=== PATIENT | female | born 1940 | race Caucasian/White ===

== ENCOUNTER 2020-08-20 11:57 | Inpatient (IN) | payer MEDICARE ==
[2020-08-21] MEDS ORDERED: Senokot S 8.6-50 MG TAB PO PRN (15:07)
[2020-08-21] MEDS: Ipratropium Bromide 2.5 ml Neb NEB SCH (17:55)
[2020-08-21] MEDS: Mometasone/Formoterol 60 PUFF AER INH SCH (20:15)
[2020-08-21] MEDS: Ferrous Sulfate 325 MG TAB PO SCH (20:24)
[2020-08-21] MEDS: Atorvastatin Calcium 40 MG TAB PO SCH (20:24)
[2020-08-22] MEDS: Ipratropium Bromide 2.5 ml Neb NEB SCH ×5 (00:04→23:23)
[2020-08-22] MEDS: traMADol HCl 50 MG TAB PO PRN ×2 (00:05→09:14)
[2020-08-22 08:08] LABS: #Basophils 0.1 thou/uL (0.0-0.2); #Lymphocytes 0.7 thou/uL (1.20-3.40); #Monocytes 0.9 thou/uL (0.11-0.59); #Neutrophils 6.5 thou/uL (1.40-6.50); %Basophils 0.7 % (0.0-1.0); %Lymphocytes 8.6 % (21.0-51.0); %Monocytes 10.9 % (0.0-10.0); %Neutrophils 79.8 % (42.0-75.0); Hemoglobin 8.8 g/dL (12.0-16.0); Mean Corpuscular HGB CONC 30.7 g/dL (32.0-36.0); Mean Corpuscular Hemoglobin 29.8 pg (27.0-31.0); Mean Corpuscular Volume 97.2 fL (78.0-98.0); Platelet Count 363 thou/uL (130-400); RBC Distribution Width 17.6 % (11.5-14.5); Red Blood Cell (RBC) Count 2.96 mill/uL (4.20-5.40); White Blood Cell (WBC) Count 8.1 thou/uL (4.8-10.8)
[2020-08-22 08:16] LABS: ALT (SGPT) 29 U/L (8-55); AST (SGOT) 24 U/L (5-34); Albumin 3.3 g/dL (3.4-4.8); Alkaline Phosphatase 52 U/L (40-110); Anion Gap 14 mmol/L (10-20); BUN (Urea Nitrogen) 8 mg/dL (9.8-20.1); Bilirubin, Total 1.9 mg/dL (0.2-1.2); Calc. Creatinine Clearance 73 mL/min (70-130); Calcium 8.5 mg/dL (7.8-10.44); Carbon Dioxide 31 mmol/L (23-31); Chloride 92 mmol/L (98-107); Globulin 2.1 g/dL (2.4-3.5); Glucose 103 mg/dL (83-110); Potassium 3.8 mmol/L (3.5-5.1); Protein, Total 5.4 g/dL (5.8-8.1); Sodium 133 mmol/L (136-145)
[2020-08-22] MEDS: Clopidogrel Bisulfate 75 MG TAB PO SCH (08:24)
[2020-08-22] MEDS: Ferrous Sulfate 325 MG TAB PO SCH ×2 (08:24→20:26)
[2020-08-22] MEDS: Spironolactone 100 MG TAB PO SCH (08:24)
[2020-08-22] MEDS: Mometasone/Formoterol 60 PUFF AER INH SCH ×2 (08:25→20:27)
[2020-08-22] MEDS: Torsemide 20 MG TAB PO SCH (08:27)
[2020-08-22] MEDS: Atorvastatin Calcium 40 MG TAB PO SCH (20:26)
[2020-08-23] MEDS: traMADol HCl 50 MG TAB PO PRN (05:05)
[2020-08-23] MEDS: Ipratropium Bromide 2.5 ml Neb NEB SCH ×4 (05:07→23:03)
[2020-08-23] MEDS: Clopidogrel Bisulfate 75 MG TAB PO SCH (09:15)
[2020-08-23] MEDS: Mometasone/Formoterol 60 PUFF AER INH SCH ×2 (09:15→20:18)
[2020-08-23] MEDS: Polyethylene Glycol 3350 17 GM Packet PO SCH (09:15)
[2020-08-23] MEDS: Torsemide 20 MG TAB PO SCH (09:15)
[2020-08-23] MEDS: Ferrous Sulfate 325 MG TAB PO SCH ×2 (09:15→20:19)
[2020-08-23] MEDS: Spironolactone 100 MG TAB PO SCH (09:16)
[2020-08-23] MEDS: Atorvastatin Calcium 40 MG TAB PO SCH (20:19)
[2020-08-23] MEDS ORDERED: Sodium Chloride 0.9% 1,000 ML IV SCH (21:15)
[2020-08-23] MEDS ORDERED: Sodium Chloride 0.9% 1,000 ML IV PRN (22:22)
[2020-08-24 05:29] LABS: #Lymphocytes 0.9 thou/uL (1.20-3.40); #Monocytes 0.8 thou/uL (0.11-0.59); #Neutrophils 6.4 thou/uL (1.40-6.50); %Basophils 0.5 % (0.0-1.0); %Eosinophils 0.3 % (0.0-10.0); %Lymphocytes 10.9 % (21.0-51.0); %Monocytes 9.7 % (0.0-10.0); %Neutrophils 78.6 % (42.0-75.0); Hemoglobin 10.1 g/dL (12.0-16.0); Mean Corpuscular HGB CONC 30.6 g/dL (32.0-36.0); Mean Corpuscular Hemoglobin 30.4 pg (27.0-31.0); Mean Corpuscular Volume 99.4 fL (78.0-98.0); Mean Platelet Volume 6.7 fL (7.4-10.4); Platelet Count 381 thou/uL (130-400); RBC Distribution Width 18.3 % (11.5-14.5); Red Blood Cell (RBC) Count 3.33 mill/uL (4.20-5.40); White Blood Cell (WBC) Count 8.1 thou/uL (4.8-10.8)
[2020-08-24 05:45] LABS: Anion Gap 15 mmol/L (10-20); BUN (Urea Nitrogen) 9 mg/dL (9.8-20.1); Calc. Creatinine Clearance 69 mL/min (70-130); Calcium 8.5 mg/dL (7.8-10.44); Carbon Dioxide 28 mmol/L (23-31); Chloride 94 mmol/L (98-107); Glucose 100 mg/dL (83-110); Potassium 3.6 mmol/L (3.5-5.1); Sodium 133 mmol/L (136-145)
[2020-08-24] MEDS: Ipratropium Bromide 2.5 ml Neb NEB SCH ×4 (05:49→23:49)
[2020-08-24] MEDS: Mometasone/Formoterol 60 PUFF AER INH SCH ×2 (08:48→20:43)
[2020-08-24] MEDS: Torsemide 20 MG TAB PO SCH (08:49)
[2020-08-24] MEDS: Ferrous Sulfate 325 MG TAB PO SCH ×2 (08:49→20:44)
[2020-08-24] MEDS: Clopidogrel Bisulfate 75 MG TAB PO SCH (08:49)
[2020-08-24] MEDS: Polyethylene Glycol 3350 17 GM Packet PO SCH (08:49)
[2020-08-24] MEDS: Spironolactone 100 MG TAB PO SCH (08:50)
[2020-08-24] MEDS ORDERED: Spironolactone 25 MG TAB PO SCH (10:00)
[2020-08-24] MEDS ORDERED: Sodium Chloride 0.9% 1,000 ML IV SCH ×2 (11:15→14:15)
[2020-08-24] MEDS ORDERED: Sodium Chloride 0.9% 500 ML IV SCH (14:15)
[2020-08-24] MEDS: Atorvastatin Calcium 40 MG TAB PO SCH (20:44)
[2020-08-25] MEDS: Ipratropium Bromide 2.5 ml Neb NEB SCH ×3 (05:20→18:16)
[2020-08-25] MEDS: Polyethylene Glycol 3350 17 GM Packet PO SCH (08:55)
[2020-08-25] MEDS: Mometasone/Formoterol 60 PUFF AER INH SCH ×2 (08:55→21:09)
[2020-08-25] MEDS: Ferrous Sulfate 325 MG TAB PO SCH ×2 (08:56→21:09)
[2020-08-25] MEDS: Clopidogrel Bisulfate 75 MG TAB PO SCH (08:56)
[2020-08-25 18:42] VITALS: BMI 26.3
[2020-08-25] MEDS: Atorvastatin Calcium 40 MG TAB PO SCH (21:09)
[2020-08-25] MEDS: traMADol HCl 50 MG TAB PO PRN (22:37)
[2020-08-26] MEDS: Ipratropium Bromide 2.5 ml Neb NEB SCH ×4 (05:59→18:20)
[2020-08-26] MEDS: Mometasone/Formoterol 60 PUFF AER INH SCH ×2 (09:29→20:08)
[2020-08-26] MEDS: Ferrous Sulfate 325 MG TAB PO SCH ×2 (09:29→20:09)
[2020-08-26] MEDS: Clopidogrel Bisulfate 75 MG TAB PO SCH (09:29)
[2020-08-26] MEDS: Polyethylene Glycol 3350 17 GM Packet PO SCH (09:30)
[2020-08-26] MEDS: Torsemide 20 MG TAB PO SCH (09:32)
[2020-08-26] MEDS: traMADol HCl 50 MG TAB PO PRN (18:24)
[2020-08-26] MEDS: Atorvastatin Calcium 40 MG TAB PO SCH (20:09)
[2020-08-27] MEDS: Ipratropium Bromide 2.5 ml Neb NEB SCH ×5 (00:07→23:38)
[2020-08-27] MEDS: Clopidogrel Bisulfate 75 MG TAB PO SCH (08:33)
[2020-08-27] MEDS: Ferrous Sulfate 325 MG TAB PO SCH ×2 (08:33→20:09)
[2020-08-27] MEDS: Mometasone/Formoterol 60 PUFF AER INH SCH ×2 (08:33→20:10)
[2020-08-27] MEDS: Torsemide 20 MG TAB PO SCH (08:34)
[2020-08-27] MEDS: Polyethylene Glycol 3350 17 GM Packet PO SCH (08:34)
[2020-08-27] MEDS: Atorvastatin Calcium 40 MG TAB PO SCH (20:09)
[2020-08-27] MEDS ORDERED: Sodium Chloride 0.9% 10 ML ONE (20:10)
[2020-08-27] MEDS: Acetaminophen 500 MG TAB PO PRN (21:50)
[2020-08-28] MEDS: Acetaminophen 500 MG TAB PO PRN (05:47)
[2020-08-28] MEDS: Ipratropium Bromide 2.5 ml Neb NEB SCH ×2 (05:48→11:22)
[2020-08-28 05:49] LABS: #Basophils 0.1 thou/uL (0.0-0.2); #Lymphocytes 1.2 thou/uL (1.20-3.40); #Monocytes 0.8 thou/uL (0.11-0.59); #Neutrophils 6.1 thou/uL (1.40-6.50); %Basophils 0.8 % (0.0-1.0); %Eosinophils 0.1 % (0.0-10.0); %Lymphocytes 15.1 % (21.0-51.0); %Monocytes 9.4 % (0.0-10.0); %Neutrophils 74.7 % (42.0-75.0); Hemoglobin 11.2 g/dL (12.0-16.0); Mean Corpuscular HGB CONC 30.7 g/dL (32.0-36.0); Mean Corpuscular Hemoglobin 30.8 pg (27.0-31.0); Mean Platelet Volume 7.2 fL (7.4-10.4); Platelet Count 388 thou/uL (130-400); RBC Distribution Width 18.2 % (11.5-14.5); Red Blood Cell (RBC) Count 3.64 mill/uL (4.20-5.40); White Blood Cell (WBC) Count 8.2 thou/uL (4.8-10.8)
[2020-08-28 06:01] LABS: Anion Gap 15 mmol/L (10-20); BUN (Urea Nitrogen) 14 mg/dL (9.8-20.1); Calc. Creatinine Clearance 64 mL/min (70-130); Carbon Dioxide 24 mmol/L (23-31); Chloride 100 mmol/L (98-107); Glucose 100 mg/dL (83-110); Potassium 3.9 mmol/L (3.5-5.1); Sodium 135 mmol/L (136-145)
[2020-08-28] MEDS: Polyethylene Glycol 3350 17 GM Packet PO SCH (08:34)
[2020-08-28] MEDS: Ferrous Sulfate 325 MG TAB PO SCH (08:34)
[2020-08-28] MEDS: Clopidogrel Bisulfate 75 MG TAB PO SCH (08:34)
[2020-08-28] MEDS: Torsemide 20 MG TAB PO SCH (08:34)
[2020-08-28] MEDS: Mometasone/Formoterol 60 PUFF AER INH SCH (08:35)
[2020-08-28 14:36] VITALS: BP 99/68; TEMP 97.8
== END 2020-08-28 14:30 | DRG 189 ==
LOC: NAV ACUTE 08-21 13:32
PROVIDERS: ADMIT Internal Medicine; ATTEND Internal Medicine
DX: J96.01 Acute respiratory failure with hypoxia (principal); R18.8 Other ascites; J90 Pleural effusion, not elsewhere classified; I10 Essential (primary) hypertension; I73.9 Peripheral vascular disease, unspecified; I25.10 Atherosclerotic heart disease of native coronary artery without angina pectoris; N83.202 Unspecified ovarian cyst, left side; R53.81 Other malaise; E78.5 Hyperlipidemia, unspecified; D64.9 Anemia, unspecified; M48.56XD Collapsed vertebra, not elsewhere classified, lumbar region, subsequent encounter for fracture with routine healing; M48.54XD Collapsed vertebra, not elsewhere classified, thoracic region, subsequent encounter for fracture with routine healing; I95.9 Hypotension, unspecified; J44.9 Chronic obstructive pulmonary disease, unspecified; K80.20 Calculus of gallbladder without cholecystitis without obstruction; Z86.73 Personal history of transient ischemic attack (TIA), and cerebral infarction without residual deficits; Z87.19 Personal history of other diseases of the digestive system; Z95.1 Presence of aortocoronary bypass graft; Z98.890 Other specified postprocedural states; Z98.41 Cataract extraction status, right eye; Z98.42 Cataract extraction status, left eye; Z96.1 Presence of intraocular lens; Z87.891 Personal history of nicotine dependence
CPT/HCPCS: 80048; 80053; 85025; J7030; J7050